=== PATIENT | male | born 1955 | race Caucasian/White ===

== ENCOUNTER → 2020-08-15 02:05 | Outpatient (CLI) | payer OTHER, SELFPAY ==
[2020-08-15 19:56] LABS: SARS-CoV-2 RNA PCR Negative
== END ==
PROVIDERS: PCP Family Medicine; Visit Provider Surgery
DX: Z01.812 Encounter for preprocedural laboratory examination (principal); Z20.822 Contact with and (suspected) exposure to COVID-19
CPT/HCPCS: C9803; U0003; U0005

== ENCOUNTER 2020-08-15 07:54 | Outpatient (CLI) | payer OTHER, SELFPAY ==
--- NOTE | 2020-08-15 | ECG_ITS ---
Measurements Intervals [place] Rate: 86 P: 22 IA: 134 QRS: 81 QRSD: 106 T: 57 QT: 366 QTc: 438 Interpretive Statements SINUS RHYTHM INCOMPLETE RIGHT BUNDLE BRANCH BLOCK BASELINE WANDER- V4-V5 BORDERLINE ECG Electronically Signed On 08-15-2020 12:05:29 CDT by Donta Mccloud D.O.
== END 2020-08-15 07:55 | disposition home or self-care (01) ==
PROVIDERS: PCP Family Medicine; Referring Provider Anesthesiology; Visit Provider Surgery
DX: Z01.818 Encounter for other preprocedural examination (principal); K40.90 Unilateral inguinal hernia, without obstruction or gangrene, not specified as recurrent; I45.10 Unspecified right bundle-branch block
CPT/HCPCS: 36415; 86850; 86900; 86901; 93005

== ENCOUNTER 2020-08-18 03:31 | Day surgery (SDC) | payer OTHER, SELFPAY ==
[2020-08-10 14:50] VITALS: BMI 28.0
[2020-08-18] VITALS (9 sets, daily range): BP systolic 117–138; BP diastolic 80–98; PULSE 73–95; RESP 12–20; TEMP 36.4–36.7; O2SAT 94–99; BMI 25.7
--- NOTE | 2020-08-18 09:51 | WPDHPUPDATE1 ---
History and Physical Update Update Date/Time: 08/18/20 09:51 History and Physical has been reviewed, including an updated exam of the patient. There are NO changes in the patient's condition. Risks, benefits, and alternatives have been discussed and questions answered. Patient agrees to proceed with procedure.
[2020-08-18] MEDS: ACETAMINOPHEN 500 MG TABLET 1000 MG PO (09:56)
[2020-08-18] MEDS: KETOROLAC 15 MG/ML VIAL (*BKC) IV PUSH (10:10)
[2020-08-18] MEDS: LACTATED RINGERS 1,000 ML 30 ML IV CONT ×2 (10:10→12:09)
--- NOTE | 2020-08-18 10:15 | P.PNAN_ITS ---
Anes - Initial Pre Proc Eval Procedure: Operation Date: 08/18/20 11:30 Proposed Procedures p Laparoscopic Right Inguinal Hernia Repair With Mesh, Davinci Assisted - Reymundo Christina DO s Open Umbilical Hernia Repair With Possible Mesh - Reymundo Christina DO Date/Time: 08/18/20 10:15 Surgeon: Reymundo Christina DO Pre Op Diagnosis: right inguinal/umbilical hernia Patient Data Age: 64 Gender: M Height: 6 ft 3 in Weight: 93.2 kg Last Vital Signs Temp 36.7 C 08/18/20 09:48 Pulse 95 08/18/20 09:48 Resp 16 08/18/20 09:48 BP 119/80 08/18/20 09:48 Pulse Ox 96 08/18/20 09:48 Allergies Allergy/AdvReac Type Severity Reaction Status Date / Time No Known Allergies Allergy Mild Verified 08/18/20 09:54 Home Medications Medication Instructions Recorded Confirmed Type albuterol sulfate [Ventolin HFA] 2 puff INHALATION QID PRN 08/10/20 08/10/20 History ascorbic acid (vitamin C) [Vitamin 500 mg PO DAILY 08/10/20 08/18/20 History C] cholecalciferol (vitamin D3) 25 mcg PO DAILY 08/10/20 08/18/20 History [Vitamin D3] fluticasone propionate [Flonase 1 spray NASAL DAILY PRN 08/10/20 08/10/20 History Allergy Relief] zolpidem 10 mg PO HS 08/10/20 08/10/20 History Patient hx anesthesia problems: none Family hx anesthesia problems: none PMFSH Past Medical History Medical History BMI 26.0-26.9,adult BMI 27.0-27.9,adult Tobacco abuse Surgical History Surgical History Fistula H/O elbow surgery bilateral H/O hand surgery bilateral History of colonoscopy Hx of shoulder surgery Family History Family History Father , 93 Family history of heart disease in male family member before age 55 Mother No problems noted. Social History Social History Smoking packs per day: 1 Smoking cigarettes per day: 20.0 Years smoked: 25 Smoking pack-years: 25.00 Smoking status: Current every day smoker Tobacco type: cigarettes Second hand tobacco smoke exposure: No Alcohol intake: never Substance use: never Substance use type: does not use Living arrangements: with family Additional occupation/education comments: [employer] Gender identity (if verbalized by the patient): Male Spiritual care concerns: No Anes - Eval Final PreProcedure Day of Procedure 08/18/20 10:15 Patient weight: overweight Heart: regular rate and rhythm Lungs: clear to auscultation Airway: Mallampati scale class II Neurological: alert and oriented Last oral intake: >/= 8 hours ASA classification: III Emergent: no Anesthetic plan: proceed Anesthesia type and monitoring: general ETT and standard monitoring Informed Consent: The patient's anesthetic plan and its attendant risks and benefits were discussed with the patient/family/POA. Questions were solicited and answers provided to the satisfaction of the patient/family/POA.
[2020-08-18] MEDS: ceFAZolin 2 GM/D5W 50 ML 2 GM/50 ML BAG IVPB (10:25)
[2020-08-18] MEDS: BUPIVACAINE/EPINEPHRINE 0.25% 10 ML VIAL 30 ML INFILTRATE (11:34)
--- NOTE | 2020-08-18 12:05 | PM.PROC ---
Procedure Note - Detailed Date of procedure: 08/18/20 Pre-op diagnosis: right inguinal hernia/umbilical hernia Post-op diagnosis: same (Indirect RIH, umbilical hernia) Procedure performed: 1. Laparoscopic right inguinal hernia repair with Progrip mesh, da Rachael assisted 2. Umbilical hernia repair with Parietex ventral patch Description of procedure: Procedure as well as risks, benefits, and alternatives were discussed with the patient. Written consent was obtained and placed in chart prior to procedure. Patient was brought back to surgical suite. He was placed supine on operating table. Time-out was done to confirm patient and procedure. He was then intubated by Anesthesia Department. His abdomen was prepped and draped in sterile fashion using chlorhexidine prep. 0.5% bupivacaine with epinephrine was infiltrated at each location for incision. A 3 cm curvilinear incision was made just superior to the umbilicus using a 15 blade scalpel. Electrocautery was used for hemostasis and for dissection down through Roma's fascia. The linea alba was identified and the umbilical hernia was then identified. The hernia sac was dissected free from the umbilical skin and the fascia was cleared circumferentially around the hernia defect. The hernia sac was excised and sent to the lab for pathology. The peritoneum was entered through the hernia sac and a 12 millimeter trocar was inserted and carbon dioxide insufflation was used to create a pneumoperitoneum. A camera was inserted and the abdominal cavity was inspected. The patient was placed in slight Trendelenburg position. An 8 millimeter incision was made on the right lateral abdomen and an 8 millimeter trocar was inserted under direct visualization. Another 8 millimeter incision was made in the left lateral abdomen and an 8 millimeter trocar was inserted under direct visualization. The robotic arms were brought up to the patient's bedside and secured to the ports. The camera and instruments were inserted. I then moved over to the robotic console and took control of the camera and instruments. After careful inspection of the abdominal cavity, I began scoring the peritoneum along the right lower quadrant using scissors with electrocautery. The preperitoneal plane was entered and this was carefully dissected caudally along the inferior epigastric vessels. Careful dissection with scissors with electrocautery and blunt dissection was used to continue this dissection. I dissected far enough laterally to allow for mesh placement, and also dissected medially to identify the pubic arch and Venkat's ligament. The hernia sac was identified and carefully dissected posteriorly. The cord contents were also identified and the peritoneum was carefully dissected far enough posteriorly to allow for mesh placement. Once an adequate pocket was created, I then placed the mesh within the preperitoneal pocket and carefully unfolded it. The mesh was centered on the hernia defect with adequate overlap circumferentially. The inferior edge of the mesh was inspected to ensure that it was far enough away from the peritoneal edge. The mesh appeared in proper position overlying the entire myopectineal orifice. The peritoneum was then closed over the mesh using a 3-0 V-lock running absorbable suture. The robotic instruments were removed. The robotic arms were disengaged from the ports and moved away from the bedside. The patient was flattened out in bed, the ports were removed under direct visualization, and the pneumoperitoneum was released. the umbilical hernia was then carefully inspected. The hernia defect measured 1 cm. A preperitoneal pocket was created around the hernia defect using blunt dissection and electrocautery. The peritoneal opening from excising the hernia sac was then closed using 3 0 Vicryl [id number] suture. There appeared to be a wide enough pocket for mesh placement. The 6.6 cm Parietex ventral patch was then place
[2020-08-18] MEDS: fentaNYL CITRATE INJ (*CRX) 100 MCG/2 ML VIAL 25 MCG IV PUSH ×4 (12:30→12:44)
[2020-08-18] MEDS: oxyCODONE HCL (*CRX) 5 MG TAB IR PO (14:31)
== END 2020-08-18 14:40 | disposition home or self-care (01) ==
PROVIDERS: PCP Family Medicine; Visit Provider Surgery
PROC: 8E0Y4CZ Robotic Assisted Procedure of Lower Extremity, Percutaneous Endoscopic Approach (ICD-10-PCS; CPT 49650; principal; 2020-08-18 11:30)
PROC: (CPT 49650; 2020-08-18 11:30)
DX: K40.90 Unilateral inguinal hernia, without obstruction or gangrene, not specified as recurrent (principal); K42.9 Umbilical hernia without obstruction or gangrene; F17.210 Nicotine dependence, cigarettes, uncomplicated
CPT/HCPCS: 49650; S2900; 36415; 86850; 86900; 86901; 88300; 88302; 93005; A9270; C1781; C9803; J0690; J1100; J1885; J2405; J2704; J2710; J3010; J7030; J7120; U0003; U0005

== ENCOUNTER 2022-05-18 06:48 | Outpatient (CLI) | payer OTHER, SELFPAY ==
[2022-05-18 07:30] LABS: Mean Corpuscular HGB Conc 33.3 g/dl (32-36); Mean Corpuscular Hemoglobin 29.8 pg (26-34); Mean Corpuscular Volume 89.4 fl (80-100); Mean Platelet Volume 9.6 fl (7.4-10.4); Platelet Count Result 331 k/mm3 (150-375); Red Blood Count 5.37 M/mm3 (4.6-6.20); Red Cell Distribution Width 12.4 % (11.5-14.5); White Blood Count 8.8 K/mm3 (4.5-10.0)
[2022-05-18 07:40] LABS: Alanine Aminotransferase 19 U/L (6-50); Albumin Level 4.2 g/dL (3.5-5.1); Alkaline Phosphatase 103 U/L (38-126); Anion Gap 3 mmol/L (8-16); Aspartate Amino Transferase 23 U/L (17-59); Bilirubin,Total 0.5 mg/dL (0.2-1.3); Blood Urea Nitrogen 16 mg/dL (9-20); Calcium 9.3 mg/dL (8.4-10.2); Carbon Dioxide 33 mmol/L (22-30); Chloride 97 mmol/L (98-107); Cholesterol 171 mg/dL (0-200); Estimated Glomerular Filt Rate > 60; Glucose 104 mg/dL (65-110); HDL Direct 49 mg/dL; Potassium 4.4 mmol/L (3.4-5.0); Sodium 133 mmol/L (137-145); Triglycerides 69 mg/dL (<150)
[2022-05-18 07:51] LABS: LDL Cholesterol Direct 87 mg/dL
[2022-05-18 08:11] LABS: Prostate Specific Antigen 7.1 ng/mL (< OR = 4.0); Thyroid Stimulating Hormone 0.993 uIU/mL (0.465-4.680)
[2022-05-18 08:36] LABS: Vitamin D 25 Hydroxy 47.5 ng/mL
== END 2022-05-18 06:49 | disposition home or self-care (01) ==
PROVIDERS: PCP Family Medicine; Visit Provider Nurse Practitioner Family
DX: R35.0 Frequency of micturition (principal); R53.83 Other fatigue; Z12.5 Encounter for screening for malignant neoplasm of prostate; Z13.1 Encounter for screening for diabetes mellitus; E55.9 Vitamin D deficiency, unspecified; Z13.220 Encounter for screening for lipoid disorders; Z13.29 Encounter for screening for other suspected endocrine disorder
CPT/HCPCS: 36415; 80053; 80061; 82306; 84153; 84443; 85027; G0103

== ENCOUNTER → 2022-06-29 11:07 | Outpatient (CLI) | payer OTHER, SELFPAY ==
--- NOTE | ~2022-06-29 | XR_ITS ---
EXAM: XR lumbar spine 2-3V DATE: 06/29/2022 11:27 HISTORY: M54.50 - Low back pain, unspecified . COMPARISON: None available. FINDINGS: Decreased mineralization. 5 nonrib-bearing lumbar-type vertebral bodies. Pedicles intact. N ormal vertebral body alignment. Vertebral body heights preserved. Multilevel marginal osteophytosis. Mild disc space narrowing at L5-S1. Lower lumbar facet hypertrophy and sclerosis. No fracture or disl ocation. IMPRESSION: Osteopenia. Multilevel mild lumbar degenerative disc disease. Multilevel lumbar facet art hropathy. Reviewed, dictated and finalized at location K. IMPRESSION: Osteopenia. Multilevel mild lumbar degenerative disc disease. Multi level lumbar facet arthropathy.
== END ==
PROVIDERS: PCP Family Medicine; Visit Provider Physician Assistant Medical
DX: M85.80 Other specified disorders of bone density and structure, unspecified site (principal); M51.36 Other intervertebral disc degeneration, lumbar region; M47.816 Spondylosis without myelopathy or radiculopathy, lumbar region
CPT/HCPCS: 72100

== ENCOUNTER → 2022-07-12 10:19 | Outpatient (CLI) | payer OTHER, SELFPAY ==
--- NOTE | ~2022-07-12 | MR_ITS ---
MRI of the lumbar spine Clinical History: Lower extremity weakness and numbness Technique: Axial T2-weighted images, and sagittal T1-weighted, T2-weighted, and and T2 fat-sat images were acquired. Findings: There is no fracture or subluxation of the lumbar spine. Vertebral bodies maintain normal h eight and alignment. No suspicious bone marrow signal abnormality seen. At L1-L2, there is no disc bulge or herniation. There is facet arthropathy. No spinal canal stenosis or neural foraminal narrowing. At L2-L3, there is mild disc bulge with facet arthropathy. There is minimal central canal stenosis. T here is mild bilateral neural foraminal narrowing. At L3-L4, there is facet arthropathy with minimal disc bulge. No spinal canal stenosis or definite ne ural foraminal narrowing. At L4-L5, there is minimal disc bulge with facet arthropathy. There is probable lateral recess stenos is bilaterally. There is mild bilateral neural foraminal narrowing. At L5-S1, there is left paracentral disc bulge with mild facet arthropathy. There is left lateral rec ess stenosis and moderate to severe left neural foraminal narrowing. Right neural foramen preserved. Paravertebral soft tissues are unremarkable. Impression: [id number] degenerative spondylosis, as detailed above. Reviewed, dictated and finalized at location . Impression: [id number] degenerative spondylosis, as detailed above.
== END ==
PROVIDERS: PCP Family Medicine; Visit Provider Physician Assistant Medical
DX: M47.816 Spondylosis without myelopathy or radiculopathy, lumbar region (principal); R53.1 Weakness; R20.0 Anesthesia of skin
CPT/HCPCS: 72148

== ENCOUNTER 2022-07-21 13:35 | Outpatient (CLI) | payer OTHER, SELFPAY ==
--- NOTE | ~2022-07-21 | US_ITS ---
EXAMINATION: US art doppler w press MARIVEL DATE: 07/21/2022 14:35 INDICATION: Peripheral arterial disease. TECHNIQUE: Segmental pressures and plethysmographic and Doppler waveforms of the brachial and lower e xtremity arteries were obtained. COMPARISON: None. FINDINGS: Right and left brachial artery pressures of 114 mm Hg and 123 mm Hg, respectively, are concordant (no rmal difference <= 30 mmHg). The right high-thigh pressure index is 1.07 (normal > 1.2). The right ankle-brachial index (ZACHERY) is 1 .11 (normal >= 0.9-1.0). The right great toe-brachial index (TBI) is 0.65 (normal >= 0.65). Arterial Doppler waveforms are at least triphasic from common femoral artery to the ankle. The left high-thigh pressure index is 1.20. The left ZACHERY is 1.16. The left TBI is 0.76. Arterial Dopp ler waveforms are at least triphasic from common femoral artery to posterior tibial artery and biphas ic in dorsalis pedis. IMPRESSION: 1. No significant arterial occlusive disease. Reviewed, dictated and finalized at location E.
== END 2022-07-21 13:36 | disposition home or self-care (01) ==
PROVIDERS: PCP Family Medicine; Visit Provider Physician Assistant Medical
DX: R09.89 Other specified symptoms and signs involving the circulatory and respiratory systems (principal); R29.898 Other symptoms and signs involving the musculoskeletal system
CPT/HCPCS: 93923

== ENCOUNTER → 2022-11-19 11:22 | Outpatient (CLI) | payer OTHER, SELFPAY ==
--- NOTE | ~2022-11-19 | MR_ITS ---
EXAMINATION: MR thoracic spine wo con DATE: 11/19/2022 12:33 INDICATION: Thoracic back pain and bilateral leg weakness TECHNIQUE: Magnetic resonance imaging (MRI) of the thoracic spine was performed without intravenous c ontrast. Sagittal localizer T1-weighted FSE of the cervicothoracic spine was obtained. Thoracic spine sequences included sagittal T2-weighted FSE, sagittal T1-weighted SE, Sagittal T2-weighted FS FSE, a nd axial T2-weighted FSE. COMPARISON: None FINDINGS: Alignment is normal. Chronic T8 compression fracture with 10% anterior vertebral body height loss at T8. There is focal minimal bulging of the posterior wall at the inferior aspect of T7 which does not result in significant central canal stenosis. T1 and T2 hyperintense hemangioma at T11. Mild fibrovas cular degenerative endplate changes along the anterior inferior endplate of T10. Marrow signal is oth erwise unremarkable. Mild disc height loss atT4-T5 through T9-T10. There is normal spinal cord signal . The conus terminates below the level of the caudal-most axial images on T12-L1. Minimal disc bulges without central canal stenosis at T10-T11 through T12-L1. There is moderate facet osteoarthritis vilma aterally at C7-T1, T9-T10 through T12-L1 and on the left at T3-T4 and mild facet osteoarthritis at th e remaining levels. There is mild neural foraminal stenosis at a few levels on both the left and righ t. Visualized paravertebral soft tissues are unremarkable. IMPRESSION: 1. Mild thoracic spondylosis. Reviewed, dictated and finalized at location A.
== END ==
PROVIDERS: PCP Family Medicine; Visit Provider Neurological Surgery
DX: M47.814 Spondylosis without myelopathy or radiculopathy, thoracic region (principal)
CPT/HCPCS: 72146